=== PATIENT | female | born 1975 | race Two or more races ===

== ENCOUNTER 2018-03-25 02:47 | Emergency (ER) | payer MEDICAID ==
[2018-03-25 06:24] VITALS: BP 151/70
== END 2018-03-25 07:00 | disposition home or self-care (01) ==
LOC: ER 02:50
DX: S92.511A Displaced fracture of proximal phalanx of right lesser toe(s), initial encounter for closed fracture (principal); W20.8XXA Other cause of strike by thrown, projected or falling object, initial encounter; Y93.89 Activity, other specified; Y92.89 Other specified places as the place of occurrence of the external cause; Y99.8 Other external cause status
CPT/HCPCS: 73630; 99284; L3260